=== PATIENT | male | born 1985 | race Caucasian/White ===

== ENCOUNTER 2019-12-09 22:41 | Emergency (ER) | payer BC ==
[~2019-12-09] VITALS: Ht 182.9 cm; Wt 74.5 kg
[~2019-12-09 22:41] MED LIST: BUPR1FIL3 SL; olanzapine 10mg tablet PO ONE
[2019-12-09 22:43] VITALS: BP 137/77
--- NOTE | 2019-12-09 22:48 | NUR ---
MOTHER: CORTNEY JASON [phone]
--- NOTE | 2019-12-09 22:49 | NUR ---
MD CAIN IN TRIAGE WITH PT FOR ASSESSMENT.
[2019-12-09] MEDS ORDERED: OLAN-1 PO (22:57)
== END 2019-12-09 23:15 | disposition home or self-care (01) ==
LOC: ER 22:42
DX: F23 Brief psychotic disorder (principal); R45.851 Suicidal ideations; F15.10 Other stimulant abuse, uncomplicated; Z72.89 Other problems related to lifestyle; Z79.899 Other long term (current) drug therapy
CPT/HCPCS: 99283; 99284